=== PATIENT | male | born 1945 | race Caucasian/White ===

== ENCOUNTER 2016-09-28 00:14 | Observation (INO) | payer MEDICARE, OTHER ==
[~2016-09-28] VITALS: Ht 185.9 cm; Wt 150.0 kg
[~2016-09-28 00:14] MED LIST: AMIO200T2 PO; ASPI-664 PO; ERGO500014 PO; LEVEM SC; LOSA100T7 PO; METF1000 PO; METO-407 PO; NOV SC; OMEG-135 PO; RIVA20TA PO
[2016-09-28 00:23] VITALS: Ht 185.9 cm; Wt 150.0 kg
[2016-09-28] MEDS ORDERED: VANCOMYCIN 1 GM (PMX) 250 ML IVPB STA (00:29)
[2016-09-28] MEDS ORDERED: ACETAMINOPHEN 325 MG TAB PO STA (00:29)
[2016-09-28] MEDS ORDERED: PIPER-TAZO 3.375 GM IV (PMX) 100 ML IVPB STA (00:29)
[2016-09-28] MEDS ORDERED: SODIUM CHLORIDE 0.9% 1L BAG IV* STA (00:29)
[2016-09-28] MEDS ORDERED: CLINDAMYCIN 900 MG/D5W (PMX) 50 ML IVPB STA (00:29)
[2016-09-28 00:57] LABS: ADD SCAN DIFF NO
[2016-09-28 01:01] LABS: ABNORMAL IP MESSAGE 1; BASOPHILS % 0.3 % (0.0-2.0); EOSINOPHILS % 0.1 % (0.0-7.0); HEMATOCRIT 41.9 % (42.0-52.0); HEMOGLOBIN 13.7 g/dl (14.0-18.0); LYMPHOCYTES # 0.5 10^3/ul (0.8-2.9); LYMPHOCYTES % 5.1 % (15.0-51.0); MEAN CORPUSCULAR HEMOGLOBIN 24.6 pg (29.0-33.0); MEAN CORPUSCULAR HGB CONC 32.7 g/dl (32.0-37.0); MEAN CORPUSCULAR VOLUME 75.4 fl (82.0-101.0); MEAN PLATELET VOLUME 9.9 fl (7.4-10.4); MONOCYTE # 0.6 10^3/ul (0.3-0.9); NEUTROPHIL # 8.7 10^3/ul (1.6-7.5); NEUTROPHILS % 88.2 % (39.0-77.0); PLATELET COUNT 130 10^3/UL (140-415); RED BLOOD COUNT 5.56 10^6/ul (4.70-6.10); RED CELL DISTRIBUTION WIDTH 15.2 % (11.5-14.5); WHITE BLOOD COUNT 9.9 10^3/ul (4.8-10.8)
[2016-09-28 01:07] LABS: INR 1.18; PARTIAL THROMBOPLASTIN TIME 26.7 Sec (25.0-35.0); PROTIME 15.1 Sec (12.2-14.2); PT RATIO 1.2
[2016-09-28 01:09] LABS: ALBUMIN 3.9 g/dl (3.3-4.9)
[2016-09-28 01:10] LABS: CHLORIDE 100 mmol/L (97-110); POTASSIUM 3.2 mmol/L (3.5-5.1); SODIUM 139 mmol/L (135-144)
[2016-09-28 01:11] LABS: ADD UMIC YES; URINE BILIRUBIN (Dip) NEGATIVE (NEGATIVE); URINE BLOOD (Dip) 3+ (NEGATIVE); URINE COLOR LT. YELLOW (YELLOW); URINE GLUCOSE (Dip) NEGATIVE (NEGATIVE); URINE KETONES (Dip) NEGATIVE (NEGATIVE); URINE LEUKOCYTE ESTERASE (Dip) NEGATIVE (NEGATIVE); URINE NITRITE (Dip) NEGATIVE (NEGATIVE); URINE TOTAL PROTEIN (Dip) 2+ (NEGATIVE); URINE UROBILINOGEN (Dip) 0.2 E.U./dL (0.1-1.0)
[2016-09-28 01:12] LABS: ALBUMIN/GLOBULIN RATIO 1.18; ANION GAP 17 (8-16); ASPARTATE AMINO TRANSFERASE 22 IU/L (15-46); BILIRUBIN,INDIRECT 0.5 mg/dl (0-1.1); BILIRUBIN,TOTAL 0.5 mg/dl (0.2-1.3); CARBON DIOXIDE 25 mmol/L (21-31); TOTAL PROTEIN 7.2 g/dl (6.1-8.1)
[2016-09-28 01:13] LABS: ALANINE AMINOTRANSFERASE 36 IU/L (13-69); ALKALINE PHOSPHATASE 71 IU/L (42-121); BLOOD UREA NITROGEN 25 mg/dl (7-20); CALCIUM 9.1 mg/dl (8.4-10.2); GLUCOSE 222 mg/dl (70-220)
--- NOTE | 2016-09-28 01:27 | RADRPT ---
PROCEDURE: XR Chest. CLINICAL INDICATION: Possible sepsis. TECHNIQUE: Single frontal view of the chest was obtained COMPARISON: Chest dated 07/30/2015. FINDINGS: Cardiomegaly with bilateral atelectasis versus airspace disease and mild pulmonary vascular congesti on. Findings are left greater than right. Left lung base atelectasis versus airspace disease may rep resent pneumonia in clinical setting of sepsis. There is no pleural effusion or pneumothorax. IMPRESSION: 1. Mild failure. 2. Left lung base atelectasis versus airspace disease may represent pneumonia in clinical setting o f sepsis RPTAT: [facility] Physician Lorin Date Time Electronically viewed and signed by Physician Lorin on 09/28/2016 01:27 RS/
[2016-09-28 01:50] LABS: TROPONIN-I < 0.012 ng/ml (0.00-0.12)
[2016-09-28 02:07] LABS: BACTERIA,URINE OCCASIONAL; SQUAMOUS EPITHELIAL CELL,UR FEW
--- NOTE | 2016-09-28 02:27 | ERA ---
ER Documentation Chief Complaint Date/Time DATE: 09/28/16 TIME: 02:12 Chief Complaint left foot pain and swelling HPI This is a very pleasant 8-year-old male who comes in with complaints of left and right foot pain and swelling. The left leg being worse. Patient has a history of diabetes. Is also had alternating fevers and chills. No nausea no vomiting. No abdominal pain. No other current complaints. ROS All systems reviewed and are negative except as per history of present illness. Medications Home Meds Active Scripts Rivaroxaban* (Xarelto*) 20 Mg Tablet, 20 MG PO WITH DINNER for 30 Days, TAB Prov:MARTHA YOO MD 08/01/15 Reported Medications Insulin Aspart* (Novolog Insulin Vial*) 100 U/Ml Vial, 0 SC SLIDING SCALE Q6, VIAL 07/30/15 Insulin Detemir* (Levemir*) 100 U/Ml Vial, 60 UNIT SC HS, VIAL 07/30/15 Fish Oil* (Fish Oil*) 1,000 Mg Cap, 1000 MG PO BID, CAP 07/30/15 Amiodarone Hcl* (Amiodarone Hcl*) 200 Mg Tablet, 200 MG PO DAILY, #30 TAB 07/30/15 Ergocalciferol* (Drisdol* (Vitamin D2)) 50,000 Unit Capsule, 77451 UNIT PO Q7D, CAP 07/30/15 Aspirin* (Aspirin* (EC)) 81 Mg Tablet.dr, 81 MG PO DAILY, TAB 07/30/15 Losartan Potassium* (Losartan Potassium*) 100 Mg Tablet, 100 MG PO DAILY, TAB 07/30/15 Metoprolol Tartrate* (Lopressor*) 100 Mg Tablet, 100 MG PO BID, #60 TAB 07/30/15 Metformin Hcl* (Metformin Hcl*) 1,000 Mg Tablet, 1000 MG PO BID, #30 TAB 07/30/15 Allergies Allergies: Coded Allergies: No Known Allergy (Unverified , 07/30/15) PMhx/Soc History of Surgery: No Anesthesia Reaction: No Hx Neurological Disorder: No Hx Respiratory Disorders: No Hx Cardiac Disorders: Yes (htn arrythmias) Hx Psychiatric Problems: No Hx Miscellaneous Medical Probl: No (dm) Hx Alcohol Use: Yes (occasionally) Hx Substance Use: Yes Hx Tobacco Use: Yes Smoking Status: Former smoker Physical Exam Vitals Vital Signs Date Time Temp Pulse Resp B/P Pulse Ox O2 Delivery O2 Flow Rate FiO2 09/28/16 01:57 99.4 105 20 148/70 95 Nasal Cannula 2.0 09/28/16 00:50 Nasal Cannula 2 09/28/16 00:35 102.3 120 24 148/70 94 Nasal Cannula 09/28/16 00:23 102.9 121 18 143/79 90 Physical Exam Const: [] Head: Atraumatic Eyes: Normal Conjunctiva ENT: Normal External Ears, Nose and Mouth. Neck: Full range of motion..~ No meningismus. Resp: Clear to auscultation bilaterally Cardio: Regular rate and rhythm, no murmurs Abd: Soft, non tender, non distended. Normal bowel sounds Skin: Elephant skinlike changes noted. Increase induration and erythema noted in lower mid calf region. Negative Homans sign Back: No midline or flank tenderness Ext: No cyanosis, or edema Neur: Awake and alert Psych: Normal Mood and Affect Result Diagram: 09/28/165 09/28/16 0035 Results 24 hrs Laboratory Tests Test 09/28/16 00:35 09/28/16 00:51 09/28/16 01:28 Activated Partial Thromboplast Time 26.7Sec Alanine Aminotransferase (ALT/SGPT) 36IU/L Albumin 3.9g/dl Albumin/Globulin Ratio 1.18 Alkaline Phosphatase 71IU/L Anion Gap 17 Aspartate Amino Transf (AST/SGOT) 22IU/L Basophils # 0.010^3/ul Basophils % 0.3% Blood Urea Nitrogen 25mg/dl Calcium Level 9.1mg/dl Carbon Dioxide Level 25mmol/L Chloride Level 100mmol/L Creatinine 1.10mg/dl Direct Bilirubin 0.00mg/dl Eosinophils # 0.010^3/ul Eosinophils % 0.1% Globulin 3.30g/dl Glucose Level 222mg/dl Hematocrit 41.9% Hemoglobin 13.7g/dl INR International Normalized Ratio 1.18 Indirect Bilirubin 0.5mg/dl Lactic Acid Level 2.2mmol/L Lymphocytes # 0.510^3/ul Lymphocytes % 5.1% Mean Corpuscular Hemoglobin 24.6pg Mean Corpuscular Hemoglobin Concent 32.7g/dl Mean Corpuscular Volume 75.4fl Mean Platelet Volume 9.9fl Monocytes # 0.610^3/ul Monocytes % 6.0% Neutrophils # 8.710^3/ul Neutrophils % 88.2% Nucleated Red Blood Cells # 0.010^3/ul Nucleated Red Blood Cells % 0.0/100WBC Platelet Count 17207^3/UL Potassium Level 3.2mmol/L Prothrombin Time 15.1Sec Prothrombin Time Ratio 1.2 Red Blood Count 5.5610^6/ul Red Cell Distribution Width 15.2% Sodium Level 139mmol/L Total Bilirubin 0.5mg/dl Total Protein 7.2g/dl Troponin I < 0.012ng/ml White Blood Count 9.910^3/ul Urine Amorphous Urates MANY Urine Bacteria OCCASIONAL Urine Bilirubin NEGATIVE Urine Clarity CLEAR Urine Color LT. YELLOW Urine Glucose NEGATIVE% Urine Hemoglobin 3+ Urine Ketones NEGATIVE Urine Leukocyte Esterase NEGATIVE Urine Microscopic RBC 5-10/HPF Urine Microscopic WBC 0-2/HPF Urine Nitrite NEGATIVE Urine Specific [place] >=1.030 Urine Squamous Epithelial Cells FEW Urine Total Protein 2+ Urine Urobilinogen 0.2 E.U./dL Urine pH 5.5 Bedside Glucose 200mg/dL Current Medications Medications (Trade) Dose Ordered Sig/Chintan Route PRN Reason Start Time Stop Time Status Last Admin Dose Admin Sodium Chloride (NS) 4,790 ml BOLUS OVER 2 HOURS STAT IV* 09/28/16 00:29 09/28/16 00:31 DC 09/28/16 00:52 Acetaminophen 650 mg 650 mg ONCE STAT PO 09/28/16 00:29 09/28/16 00:31 DC 09/28/16 00:57 Vancomycin HCl 250 ml @ 125 mls/hr ONCE STAT IVPB 09/28/16 00:29 09/28/16 02:28 Clindamycin HCl/ Dextrose 50 ml @ 50 mls/hr ONCE STAT IVPB 09/28/16 00:29 09/28/16 01:28 DC 09/28/16 02:05 Piperacillin Sod/ Tazobactam Sod (Zosyn 3.375gm/ 100 ml (Pmx)) 100 ml @ 100 mls/hr ONCE STAT IVPB 09/28/16 00:29 09/28/16 01:28 DC 09/28/16 00:57 Procedures/MDM Patient's infectious symptoms have not stabilized and the patient is at risk of rapid decompensation. The patient will be admitted for careful hydration, antibiotic therapy, and infectious source control. Severe Sepsis Assessment: Infectious Source: Pneumonia End organ damage indicated by: [Lactate > 2.0 mmol/L Severe Sepsis Managment: Blood Cultures X 2 before broad spectrum antibiotics initiated within 3 hours of recognition. 30 ml/kg NS bolus Completed Initial Lactate: 2.2 Repeat Lactate pending Critical Care: Time: 45 minutes Treatments/Evaluations: Emergent fluid management, while maintaining close respiratory support. Immediate broad spectrum antibiotic therapy. Simultaneous assessment for possible sources in order to direct therapy. Consideration for invasive and chemical support to prevent respiratory or cardiac collapse. Septic Shock Assessment (1 hour post 30 ml/kg fluid bolus): Hypotension (SBP < 90 or 40 mmHg drop, MAP < 65): [No] Lactic acid > 4.0 [No] Perfusion Reassessment for Septic Shock: Temp 99.1, Pulse 97, RR 18, BP 118/76 Heart Exam: [Tachycardic] Lung Exam: [No Crackles] Capillary Refill: [Delayed] Peripheral Pulses: [Radially present] Skin: [Mottled, pale] Accepting Care Team: Current data and ongoing care discussed. Time: 2 AM Primary Provider: Hospitalist Consulting: [XOXOXO] Outstanding Data: none Chest X-ray 1V Interpreted by me: Soft Tissue: No acute abnormalities Bones: No acute abnormalities Mediastinum/Cardiac Silhouette/Lungs: Right lower lobe pneumonia EKG: Rate/Rhythm: [Normal Sinus Rhythm] QRS, ST, T-waves: [No changes consistent w/ acute ischemia] Impression: [No evidence of ischemia or arrhythmia] Departure Diagnosis: Primary Impression: Sepsis Condition: Serious MARTHA LACEY Sep 28, 2016 02:23
[2016-09-28 07:00] VITALS: TEMP 98.9
[2016-09-28] MEDS ORDERED: ACETAMINOPHEN 325 MG TAB PO PRN (07:00)
[2016-09-28] MEDS ORDERED: ONDANSETRON 4 MG INJ IV PRN ×2 (07:00→10:00)
[2016-09-28] MEDS ORDERED: ASPI325T4 PO (07:35)
[2016-09-28 08:06] VITALS: BP 145/66; RESP 22
[2016-09-28] MEDS ORDERED: ASPIRIN 325 MG TAB PO SCH (10:00)
[2016-09-28] MEDS ORDERED: HYDROCODONE/APAP (7.5/325) TAB PO PRN (10:00)
[2016-09-28] MEDS ORDERED: GLUCOSE GEL 15 GRAM TUBE PO PRN ×2 (10:00)
[2016-09-28] MEDS ORDERED: DEXTROSE 50% 50 ML SYRINGE IV PRN ×2 (10:00)
[2016-09-28] MEDS ORDERED: HYDROCODONE/APAP (5/325) TAB PO PRN (10:00)
[2016-09-28] MEDS ORDERED: GLUCAGON 1 MG INJ IM PRN (10:00)
[2016-09-28] MEDS ORDERED: GLUCOSE GEL 15 GRAM TUBE BUCCAL PRN (10:00)
[2016-09-28] MEDS ORDERED: morphine 2 MG INJ IV PRN (10:00)
[2016-09-28] MEDS ORDERED: VANCOMYCIN IV PER PHARMACY XX SCH (10:00)
[2016-09-28] MEDS: LEVOFLOXACIN 500MG/D5W (PMX) 100 ML IVPB SCH (10:50)
[2016-09-28] MEDS: SOD CHLORIDE 0.9% 1,000 ML IV SCH ×2 (10:50→18:00)
[2016-09-28] MEDS: FISH OIL 1,000 MG CAP PO SCH ×2 (10:51→20:42)
[2016-09-28] MEDS: LOSARTAN 50 MG TAB PO SCH (10:52)
[2016-09-28] MEDS: INSULIN ASPART [NOVOLOG] 3 ML PEN SC SCH ×3 (11:26→20:52)
[2016-09-28] MEDS ORDERED: VANCOMYCIN 2 GM in SOD CHLORIDE 0.9% 500 ML IVPB SCH (12:00)
[2016-09-28] MEDS ORDERED: LINAGLIPTIN 5 MG TABLET PO SCH (14:30)
--- NOTE | 2016-09-28 15:14 | CONS ---
DATE OF ADMISSION: 09/28/2016 DATE OF CONSULTATION: 09/28/2016 TYPE OF CONSULTATION: Infectious Disease. REASON FOR CONSULTATION: Antibiotic management. HISTORY OF PRESENT ILLNESS: The patient is a 71-year-old Turkmen-Martiniquais male who comes in with geovanni frost complaint of left and right foot pain as well as swelling. His past problems include: 1. Adult-onset diabetes mellitus, on insulin. 2. Cardiac arrhythmia, on amiodarone. 3. Hypertension, on losartan and metoprolol. The patient is on metformin for his diabetes and the amiodarone is for his cardiac arrhythmia. Acut allison, he comes in with left and right foot pain and swelling. PAST MEDICAL HISTORY: Operations as outlined. FAMILY HISTORY: Noncontributory. SOCIAL HISTORY: He smoked in the past, he does smoke. He has use drugs and he does drink. ALLERGIES: NONE TO PENICILLIN, SULFA OR FOODS. MEDICATIONS: Per chart. REVIEW OF SYSTEMS: As per HPI. PHYSICAL EXAMINATION: GENERAL: The patient is well-developed, well-nourished male, alert, responsive, in no acute distres s. VITAL SIGNS: Stable. He is afebrile. SKIN: Without generalized rash. HEENT: Within normal limits. NECK: Supple. LYMPH NODES: None palpable. CHEST: Decreased breath sounds at the bases. HEART: Without murmur or gallop. ABDOMEN: Soft, nontender, without organosplenomegaly or masses. EXTREMITIES: Without cyanosis, clubbing, or edema. Of note, in terms of his extremities, he has in duration and erythema in the lower mid calf region bilaterally, left greater than right. Negative H omans sign. RECTAL AND GENITAL: Deferred. NEUROLOGIC: No focal neurological abnormality. LABORATORY DATA: White count is 9.9, H and H of 13.7 and 41.9. BUN and creatinine 25/1.1. His glu cose is 222. PLAN: The patient was begun in the emergency room on vancomycin. He is on Xarelto for his arrhythm ia and he was started on Levaquin. He had 1 dose of Zosyn and 1 dose of clindamycin. We will pamela nue him on vancomycin and Levaquin. His chest x-ray shows some atelectasis at the left lung base ve rsus airspace disease, may represent pneumonia in a clinical setting of sepsis. We will continue lilia stoll on vancomycin and Levaquin. I will dictate my findings to the hospitalist. Dictated By: HAYLEY NG MD, JD/LUIS Conf#: [id number] DID#: [id number]
--- NOTE | 2016-09-28 15:52 | HP ---
DATE OF ADMISSION: 09/28/2016 CONSULTANTS: None. CHIEF COMPLAINT: Fever and lower extremity edema. HISTORY OF PRESENT ILLNESS: This is a very pleasant 71-year-old gentleman with past medical history of hypertension, diabetes mellitus, chronic kidney insufficiency, bilateral foot cellulitis, periph eral vascular disease, peripheral arterial disease and status post angioplasty of bilateral lower ex tremity. The patient presented to [facility] secondary to having a fever x1 day w ith increased severity of edema bilateral lower extremities and increased severity of bilateral lowe r extremity edema. The patient denies having any chest pain, although he does complain of having hi story of dyspnea, which has been ongoing. He does have bilateral lower extremity edema for about 4 to 5 years and bilateral lower extremity cellulitis for the past 2 years. He has had several interv entions such as angioplasty of bilateral lower extremity with questionable stent placement as per ga s statement. At this time, the patient denies having any fever, chills, weight gain, weight loss, a norexia. No chest pain, palpitations, edema, orthopnea. No change in visual acuity, diplopia, phot ophobia. No recent travel history or any sick contact, no cough, congestion, abdominal pain, nausea , vomiting, diarrhea, dysuria, hematuria, urgency, incontinence or any other discomfort except what was stated above. PAST MEDICAL AND SURGICAL HISTORY: As above per HPI. MEDICATIONS: 1. Aspirin 325 mg 2. Fish oil 1000 mg. 3. NovoLog insulin sliding scale. 4. Levemir 60 units subQ at bedtime. 5. Losartan 100 mg. 6. Metformin 1000 mg. 7. Xarelto 20 mg. ALLERGIES: NO KNOWN DRUG ALLERGIES. FAMILY HISTORY: Positive for hypertension, diabetes mellitus and dyslipidemia. SOCIAL HISTORY: Former smoker in remission. No alcohol, no illicit drugs. REVIEW OF SYSTEMS: As above per HPI, otherwise 12 review of systems has been found to be negative. PHYSICAL EXAMINATION: VITAL SIGNS: Temperature 99.4, pulse 104, respiration 22, blood pressure 145/66, oxygen saturation 95% in room air. GENERAL APPEARANCE: The patient is lying in bed comfortably without any distress. He is awake, rhonda rt, oriented. He is able to answer my questions properly. Body habitus morbidly obese with BMI of 43.4. EYES AND ENT: Conjunctivae and lids are normal. Pupils are normal. Extraocular movements normal. Hearing grossly normal. Lips are normal. Oral mucosa is moist. NECK: Supple. Trachea is midline. No lymphadenopathy. RESPIRATORY: Effort is normal. Clear to auscultate bilaterally. CARDIOVASCULAR: Normal S1, S2. Regular rhythm and rate. No murmur, no bruits, no edema. Peripher al pulses, radial pulses palpable. Cap refill is normal. CHEST: Normal expansion of thorax during inspiration. GASTROINTESTINAL: Abdomen is soft, nontender, not distended. Bowel sounds present. No guarding, n o rebound. GENITOURINARY: Deferred. MUSCULOSKELETAL: Upper extremities within normal limits. Lower extremity, there is chronic stasis dermatitis in bilateral lower extremities with +2 edema bilateral in lower extremities. NEUROLOGIC: Cranial nerves II through XII are grossly intact. PSYCHIATRIC: Normal judgment and insight. Alert and oriented x3. Mood and affect is normal. LABORATORY WORK AND IMAGING: Sodium 139, potassium 3.2, chloride 100, bicarbonate 25, BUN 25, creat inine 1.10, glucose 223. Lactic acid 2.2, repeat is 4.1. LFTs all within normal limits. PT 1.18. WBC 9.9, hemoglobin 13.7, hematocrit 41.9, platelets 130. Urinalysis negative except amorphous ur ates many. Total protein positive 2. ASSESSMENT AND PLAN: 1. Fever, unknown origin. This could be secondary to lower extremity cellulitis versus pneumonia. The patient has been started on Levaquin and vancomycin. Will continue to monitor. Follow up bloo d culture. 2. Bilateral lower extremity edema, chronic. The patient has been started on IV Lasix. 3. Diabetes mellitus. Continue Metformin. Insulin sliding scale and Levemir. 4. History of peripheral arterial disease. Continue Xarelto, aspirin. Follow up lipid panel. 5. Essential hypertension, well controlled on medical management. 6. For deep venous thrombosis prophylaxis, the patient is on anticoagulation. We will continue to monitor patient closely. Further recommendations, management and treatment as per clinical course. Dictated By: YARA FIELDS/NTS Conf#: [id number] DID#: [id number]
[2016-09-28] MEDS: metFORMIN 500 MG TAB PO SCH (17:50)
[2016-09-28] MEDS: RIVAROXABAN 20 MG TABLET PO SCH (17:53)
[2016-09-28] MEDS: FUROSEMIDE 20 MG INJ IV SCH (17:53)
[2016-09-28] MEDS: ASPIRIN 81 MG TAB PO SCH (17:57)
[2016-09-28 19:00] VITALS: BP 148/64; RESP 20
[2016-09-28] MEDS: DOCUSATE SODIUM 100 MG CAP PO SCH (20:42)
[2016-09-28] MEDS: FAMOTIDINE 20 MG TAB PO SCH (20:42)
[2016-09-28] MEDS: METOPROLOL 25 MG TAB PO SCH (20:43)
[2016-09-28] MEDS ORDERED: INSULIN DETEMIR [LEVEMIR] 3ML CART SC SCH (21:00)
[2016-09-28] MEDS: VANCOMYCIN 1.25 GM in SOD CHLORIDE 0.9% 250 ML IVPB SCH (23:40)
[2016-09-29] MEDS: SOD CHLORIDE 0.9% 1,000 ML IV SCH ×4 (01:27→18:00)
[2016-09-29] MEDS ORDERED: ACCUCHECK XX SCH (02:00)
[2016-09-29] MEDS: FUROSEMIDE 20 MG INJ IV SCH ×2 (05:45→18:21)
[2016-09-29 06:11] LABS: ADD SCAN DIFF NO
[2016-09-29 06:32] LABS: POTASSIUM 3.2 mmol/L (3.5-5.1)
[2016-09-29 06:35] LABS: BASOPHILS % 0.4 % (0.0-2.0); CALCIUM 8.4 mg/dl (8.4-10.2); CREATININE 1.03 mg/dl (0.61-1.24); EOSINOPHILS % 0.4 % (0.0-7.0); HEMATOCRIT 37.3 % (42.0-52.0); HEMOGLOBIN 11.8 g/dl (14.0-18.0); LYMPHOCYTES # 0.8 10^3/ul (0.8-2.9); LYMPHOCYTES % 11.3 % (15.0-51.0); MEAN CORPUSCULAR HEMOGLOBIN 24.5 pg (29.0-33.0); MEAN CORPUSCULAR HGB CONC 31.6 g/dl (32.0-37.0); MEAN CORPUSCULAR VOLUME 77.4 fl (82.0-101.0); MEAN PLATELET VOLUME 10.7 fl (7.4-10.4); MONOCYTE # 0.7 10^3/ul (0.3-0.9); MONOCYTES % 9.2 % (0.0-11.0); NEUTROPHIL # 5.8 10^3/ul (1.6-7.5); PLATELET COUNT 117 10^3/UL (140-415); RED BLOOD COUNT 4.82 10^6/ul (4.70-6.10); RED CELL DISTRIBUTION WIDTH 16.1 % (11.5-14.5); WHITE BLOOD COUNT 7.4 10^3/ul (4.8-10.8)
[2016-09-29 06:36] LABS: MAGNESIUM 1.5 mg/dl (1.7-2.5)
[2016-09-29 06:45] LABS: IRON 19 ug/dl (35-150)
[2016-09-29 06:54] LABS: TOTAL IRON BINDING CAPACITY 340 ug/dl (241-421)
[2016-09-29 07:28] LABS: THYROID STIMULATING HORMONE 7.35 MIU/L (0.465-4.680)
[2016-09-29 07:35] LABS: CHOL/HDL RATIO 4.5 RATIO
[2016-09-29] MEDS: INSULIN ASPART [NOVOLOG] 3 ML PEN SC SCH ×3 (08:11→18:00)
[2016-09-29] MEDS: ASPIRIN 81 MG TAB PO SCH (08:24)
[2016-09-29] MEDS: FAMOTIDINE 20 MG TAB PO SCH (08:25)
[2016-09-29] MEDS: DOCUSATE SODIUM 100 MG CAP PO SCH (08:25)
[2016-09-29] MEDS: LOSARTAN 50 MG TAB PO SCH (08:26)
[2016-09-29] MEDS: metFORMIN 500 MG TAB PO SCH ×2 (08:27→18:22)
[2016-09-29] MEDS: METOPROLOL 25 MG TAB PO SCH (08:27)
[2016-09-29] MEDS: FISH OIL 1,000 MG CAP PO SCH (08:28)
[2016-09-29 08:30] VITALS: BP 135/64; RESP 18
[2016-09-29] MEDS: LEVOFLOXACIN 500MG/D5W (PMX) 100 ML IVPB SCH (11:58)
[2016-09-29] MEDS: VANCOMYCIN 1.25 GM in SOD CHLORIDE 0.9% 250 ML IVPB SCH (13:20)
--- NOTE | 2016-09-29 13:37 | PN ---
DATE: SUBJECTIVE: No events overnight. Patient is sitting comfortably in a chair. No fevers. VITAL SIGNS: T-max yesterday was 102.3. LABS: WBC today 7.4, H and H 11.8 and 37.3, platelets 117, neutrophils 78. No bands. BUN 20, creatinine 1.03. MICROBIOLOGY: Blood culture growing gram-negative rods. Urine culture preliminary negative. ANTIMICROBIALS: Patient is on IV vancomycin and Levaquin. PHYSICAL EXAMINATION: GENERAL: This is a morbidly obese, elderly man who is in no distress. HEENT: Head atraumatic, normocephalic. Sclerae anicteric. Buccal mucosa dry. NECK: Obese. CHEST: Rise symmetrical. Breath sounds diminished to bases. HEART: S1, S2. ABDOMEN: Soft. Bowel tones hypoactive. EXTREMITIES: Bilateral lower extremities edema, erythema, and chronic wounds. ASSESSMENT: 1. Systemic inflammatory response syndrome with fevers and gram-negative rods bacteremia. 2. Bilateral lower extremities acute on chronic cellulitis with chronic wounds. 3. Morbid obesity. 4. Left lower lung atelectasis, possible pneumonia. 5. Diabetes. 6. Hypertension. 7. Arrhythmia. PLAN: Patient is clinically stable. We are going to continue him on current antimicrobials. We will check wound cultures. Repeat blood cultures in a.m. Continue abx. Consider podiatry evaluation. Dictated By: RENATA DEGROOT SENIOR SCRUM MASTER for HAYLEY HARPER/LUIS Conf#: [id number] DID#: [id number] MTDD
--- NOTE | 2016-09-29 15:43 | PDOCDIS ---
Discharge Instructions CONDITION Patient Condition: Stable HOME CARE INSTRUCTIONS: Diet Instructions: Low Fat /Cholesterol ACTIVITY: Activity Restrictions: Slowly Increase Activity Rest between Activity Avoid heavy lifting FOLLOW UP/APPOINTMENTS Appointments Follow up with PCP in one week YARA ROBLES MD Sep 29, 2016 15:43
[2016-09-29] MEDS ORDERED: ASPI81TA3 PO (15:47)
[2016-09-29] MEDS ORDERED: METO-448 PO (15:47)
[2016-09-29] MEDS ORDERED: FURO20TA3 PO (15:47)
[2016-09-29] MEDS ORDERED: CEPH500C PO (15:47)
[2016-09-29] MEDS ORDERED: LACT1CAP57 PO (15:47)
[2016-09-29] MEDS ORDERED: LEVO500T10 PO (15:47)
[2016-09-29] MEDS ORDERED: POTASSIUM CHLORIDE (SR) 20 MEQ TAB PO STA (15:58)
[2016-09-29] MEDS ORDERED: MAGNESIUM OXIDE 400 MG TAB PO ONE (16:00)
--- NOTE | 2016-09-29 17:35 | DS ---
DATE OF ADMISSION: 09/28/2016 DATE OF DISCHARGE: 09/29/2016 VISE HAND: Dr. Palm DISCHARGE DIAGNOSES: 1. Sepsis secondary to bacteremia. The patient is status post Levaquin and vancomycin. He will be discharged home on Levaquin and Keflex. 2. Bacteremia with gram-negative rods on Keflex and Levaquin. 3. Bilateral lower extremity edema, chronic, status post IV Lasix. The patient was discharged on o ral Lasix 4. Diabetes mellitus on metformin and Levemir. 5. Peripheral arterial disease. Continue Xarelto and aspirin. The patient's lipid panel is within normal limits. 6. Morbid obesity. Diet and exercise has been recommended. 7. History of atrial fibrillation. The patient has been started on beta nehemias. Continue Xarelto . 8. Chronic stasis dermatitis bilateral lower extremity. Wound care has been consulted for home [facility]. MEDICATIONS: 1. Aspirin 81 mg 2. Keflex 500 mg. 3. Lasix 20 mg. 4. Lactobacillus 1 tab p.o. b.i.d. 5. Levaquin 500 mg, #10. 6. Metoprolol 12.5 mg. 7. Fish oil 1000 mg. 8. Levemir 60 units. 9. Losartan 100 mg 10. Metformin 1000 mg. 11. Xarelto 20 mg. ALLERGIES: NO KNOWN DRUG ALLERGIES. LABORATORY DATA: Blood culture gram-negative rods. Triglyceride 102, total cholesterol 109, LDL 65 , HDL 24. TSH 7.350. WBC 7.4, hemoglobin 11.8, hematocrit 37.3, platelets 117, MCV 77.4. Sodium 1 38, potassium 3.2, chloride 100, bicarbonate 27, BUN 20, creatinine 1.03, glucose 132, calcium 8.3, magnesium 1.5. Both potassium and magnesium have been repleted prior to discharge. HOSPITAL COURSE: This is a pleasant 71-year-old gentleman with past medical history of hypertension , peripheral vascular disease, chronic stasis dermatitis, foot cellulitis, diabetic mellitus, diabet ic neuropathy, atrial fibrillation on chronic anticoagulation, chronic renal insufficiency, peripher al arterial disease status post angioplasty bilateral lower extremity who presented to [facility] secondary to having fever x1 to 2 days, increased edema bilateral lower extremities. The patient denies any chest pain, shortness of breath, or any other discomfort, although the bila teral lower extremity edema has been increasing in severity for the past 4 to 5 days, although he st ates that this has been going on for 3 to 4 years and he has had several hospitalizations for lower extremity cellulitis. Upon arrival to emergency room, the patient was found to be febrile with temp erature of 102.9. His lactic acid was found to be elevated. He was started on Zosyn and vancomycin and was then transitioned to vancomycin and Levaquin. His blood culture was found to be positive f or gram-negative rods. Urine culture negative. His chest x-ray was found to show left lung base at electasis versus air that could represent pneumonia in clinical setting of sepsis. The patient's WB C upon arrival was normal at 9.9, hemoglobin and hematocrit 33.7 and 49.9. The patient was continue d on broad spectrum antibiotic. Infectious disease doctor was consulted. Today the patient's lacti c acid normal. He has been afebrile since yesterday morning. His vitals are stable with temperatur e 98.6, pulse 85, respiration 18, blood pressure 135/65, saturating 94% in room air. The patient ferrell s been able to tolerate oral intake. He was found to have elevated TSH. This could be secondary to acute setting. At this time, I have written a prescription for him to follow up with his PCP for t hyroid panel, TSH, free T3, and free T4. Also, he was found to have microcytic anemia. I am also w riting for him to follow up with his primary care physician for iron level and ferritin level evalua tion as outpatient. CONDITION AT TIME OF DISCHARGE: Stable. Dictated By: YARA FIELDS/LUIS Conf#: [id number] DID#: [id number]
[2016-09-29] MEDS: RIVAROXABAN 20 MG TABLET PO SCH (18:22)
[2016-09-29 18:30] VITALS: BP 142/68; PULSE 85; RESP 18
== END 2016-09-29 18:40 | disposition home health service (06) ==
LOC: E/R 00:14 → MS2 07:43
PROVIDERS: ADMIT Family Medicine; ATTEND Family Medicine
DX: A41.9 Sepsis, unspecified organism (principal); R60.0 Localized edema; E11.9 Type 2 diabetes mellitus without complications; I73.9 Peripheral vascular disease, unspecified; L25.9 Unspecified contact dermatitis, unspecified cause; Z79.82 Long term (current) use of aspirin; E66.01 Morbid (severe) obesity due to excess calories; Z68.41 Body mass index [BMI] 40.0-44.9, adult
CPT/HCPCS: 36415; 71010; 80048; 80053; 80061; 81001; 82962; 83036; 83540; 83605; 83735; 84443; 84484; 85025; 85610; 85730; 87040; 87070; 87081; 87086; 93005; 96361; 96365; 96366; 96367; 96368; 96372; 96375; 96376; 99291; G0378; J1815; J1940; J1956; J2543; J3370; J7030; J7040; J7050; 81003